=== PATIENT | female | born 1995 | race Caucasian/White ===

== ENCOUNTER 2020-12-10 12:02 | Emergency (ER) | payer SELFPAY ==
[~2020-12-10] VITALS: Ht 165.1 cm; Wt 111.1 kg
[2020-12-10 12:06] VITALS: BP 130/81
--- NOTE | 2020-12-10 12:22 | NUR ---
25yo f complaining of vaginal pain x 3 days. as per patient, pain feels like a burning sensation. pt also reports feeling "something protruding out" of vagina. admits to sexual intercourse 1 week ago. denies fever, dysuria. in ed, vss. pt asked to change to pt gown. pt resting comfortably in bed with 2 siderails up. ermd made aware of pt status. lmp: 12/10/20 pmh: none nka
[2020-12-10 12:27] VITALS: BP 130/81
--- NOTE | 2020-12-10 12:50 | NUR ---
DR LE AT BEDSIDE PERFORMING PELVIC EXAM. ACCOMPANIED BY MARCIA MEZA.
[2020-12-10 13:18] LABS: APPEARANCE,URINE HAZY (CLEAR); BILIRUBIN,URINE NEGATIVE (NEGATIVE); BLOOD, URINE 3+ (NEGATIVE); COLOR,URINE ORANGE (YELLOW); LEUKOCYTE ESTERASE ,URINE TRACE (NEGATIVE); NITRITE, URINE NEGATIVE (NEGATIVE); PH,URINE 6.5 (5.0-9.0); UGLUCOSE NEGATIVE (NEGATIVE)
[2020-12-10] MEDS ORDERED: ACET-8386 PO (13:18)
[2020-12-10 13:24] LABS: RBC,URINE TOO NUMEROUS TO COUN /HPF (0-5); WBC,URINE 0-5 /HPF (0-5)
--- NOTE | 2020-12-10 13:27 | NUR ---
Patient discharged with v/s stable. Written and verbal after care instructions given and explained. Patient alert, oriented and verbalized understanding of instructions. Ambulatory with steady gait. All questions addressed prior to discharge. ID band removed. Patient advised to follow up with PMD. Rx of norco, and lidocaine jelly given. Patient educated on indication of medication including possible reaction and side effects. Opportunity to ask questions provided and answered.
== END 2020-12-10 13:27 | disposition home or self-care (01) ==
LOC: MED 12:02
DX: L02.215 Cutaneous abscess of perineum (principal)
CPT/HCPCS: 81001; 81025; 99284